=== PATIENT | female | born 1995 | race Hispanic/Latino ===

== ENCOUNTER 2021-02-02 01:30 | Emergency (ER) | payer OTHER, SELFPAY ==
--- NOTE | ~2021-02-02 | CT_ITS ---
EXAMINATION: CTA chest PE protocol DATE: 02/02/2021 03:12 INDICATION: Chest pain. Covid-positive. TECHNIQUE: Computed tomography angiography (CTA) of the chest was performed with 100 mL Omnipaque-350 intravenous contrast timed to evaluate the pulmonary arteries. Coronal maximum intensity projection 3D-reconstructions were created by the technologist. Automated exposure control and iterative reconst ruction technique were employed. Exam dose: 143.53 mGy-cm total exam DLP. COMPARISON: None. FINDINGS: There is diagnostic contrast enhancement of the pulmonary arteries. There is some streak ar tifact from the contrast bolus in the superior vena cava. No definite pulmonary embolism is noted. Normal heart size. No pericardial or pleural effusion. No thoracic aortic aneurysm or dissection. No hilar or mediastinal mass lesion or lymphadenopathy. No pulmonary infiltrate or consolidation, pleural effusion or pulmonary vascular congestion or pneumo thorax. Included skeletal structures are unremarkable. IMPRESSION: No apparent pulmonary embolism Reviewed, dictated and finalized at [facility]. Reviewed, dictated and finalized at location [facility].
[2021-02-02 01:36] VITALS: BP 106/74; PULSE 59; RESP 14; TEMP 36.3; O2SAT 100
--- NOTE | 2021-02-02 01:48 | ECG_ITS ---
Measurements Intervals [place] Rate: 59 P: 71 GA: 185 QRS: 77 QRSD: 94 T: 34 QT: 412 QTc: 411 Interpretive Statements SINUS BRADYCARDIA POSSIBLE LEFT ATRIAL ENLARGEMENT INCOMPLETE RIGHT BUNDLE BRANCH BLOCK BORDERLINE ECG Electronically Signed On 02-02-2021 7:12:27 CDT by Elvin Roberts D.O.
[2021-02-02 02:01] LABS: Basophils Percent Auto 0.3 % (0.2-1.2); Eosinophils Absolute Auto 0.1 K/mm3 (0-0.3); Eosinophils Percent Auto 1.6 % (0-4.4); Hematocrit 42.7 % (37.0-47.0); Hemoglobin 13.4 g/dL (12.0-15.0); Immature Granulocyte Absolute 0.01 K/mm3 (0.00-0.031); Immature Granulocyte Percent A 0.2 % (0-0.5); Lymphocytes Absolute Auto 3.55 K/mm3 (0.9-3.2); Lymphocytes Percent Auto 55.1 % (18.3-44.2); Mean Corpuscular HGB Conc 31.4 g/dl (32-36); Mean Corpuscular Hemoglobin 26.6 pg (26-34); Mean Corpuscular Volume 84.7 fl (80-100); Mean Platelet Volume 9.1 fl (7.4-10.4); Monocytes Absolute Auto 0.5 K/mm3 (0.1-0.6); Monocytes Percent Auto 7.9 % (2.6-8.5); Neutrophils Absolute Auto 2.3 K/mm3 (1.3-6.7); Neutrophils Percent Auto 34.9 % (45.5-73.1); Platelet Count Result 249 k/mm3 (150-375); Red Blood Count 5.04 M/mm3 (4.2-5.4); White Blood Count 6.4 K/mm3 (4.5-10.0)
[2021-02-02] MEDS: ALBUTEROL SULFATE (*SP) INHALER 2 PUFF INHALATION (02:01)
--- NOTE | 2021-02-02 02:04 | ED.GENADULT ---
HPI - General Adult General Chief complaint: Chest Pain Stated complaint: Chest pain, COVID + Time Seen by Provider: 02/02/21 01:37 History of Present Illness HPI narrative: Patient is a 25-year-old female presents to the emergency department with chief complaint of chest pain. The patient reports that she was diagnosed with COVID-19 after she went to a wedding where approximately 30 people tested positive for COVID-19 after exposure. Patient reports she has had both doses of with the mRNA vaccines for COVID-19. Patient reports she is had body aches and chills for the last several days reports that she just started coughing this evening. The patient states that she had a pain in the left side of her chest that radiates up into her neck reports that its not improved by anything reports its a aching-like pain. Related Data Home Medications Medication Instructions Recorded Confirmed No Home Medications 12/13/19 12/13/19 Allergies Allergy/AdvReac Type Severity Reaction Status Date / Time No Known Allergies Allergy Verified 01/10/21 10:15 Review of Systems Review of Systems: A 10 system review of systems was completed on the patient and is negative except for what is stated in the HPI. Nursing and ancillary documentation was reviewed. [facility] Past Medical History Medical History Healthy adult Family History Family History Mother Hypertension Diabetes mellitus Social History Social History Smoking status: Never smoker Alcohol intake: current Drinks per week: 0 Alcohol use details: rare Substance use: never Exam Narrative: GENERAL: Well-appearing, well-nourished, and in no acute distress. HEAD: Normocephalic, atraumatic. EYES: PERRLA and EOMI. ENT: Nares clear, no rhinorrhea or epistaxis. Mucous membranes moist. NECK: Supple. CHEST: Clear to auscultation. No respiratory distress. HEART: Regular rate and rhythm. No murmur heard. Normal peripheral pulses. ABDOMEN: Soft, nontender, nondistended, normal active bowel sounds. EXTREMITIES: Normal range of motion. No edema. SKIN: Warm, dry, no rash. NEURO: No focal deficits. Alert and oriented x3. PSYCH: Normal mood and affect. Course Course Emergency Course: EKG is sinus bradycardia rate of [address] elevation or ST depression Vital Signs Vital signs: Vital Signs Temperature 36.3 C L 02/02/21 01:36 Pulse Rate 59 L 02/02/21 01:36 Respiratory Rate 14 02/02/21 01:36 Blood Pressure 106/74 02/02/21 01:36 Pulse Oximetry 100 02/02/21 01:36 Temperature 36.3 C L 02/02/21 01:36 Pulse Rate 57 L 02/02/21 04:40 Respiratory Rate 14 02/02/21 04:40 Blood Pressure 101/71 02/02/21 04:40 Pulse Oximetry 100 02/02/21 04:40 Medical Decision Making Vital Signs Vital Signs: Vital Signs Temperature 36.3 C L 02/02/21 01:36 Pulse Rate 59 L 02/02/21 01:36 Respiratory Rate 14 02/02/21 01:36 Blood Pressure 106/74 02/02/21 01:36 Pulse Oximetry 100 02/02/21 01:36 Temperature 36.3 C L 02/02/21 01:36 Pulse Rate 57 L 02/02/21 04:40 Respiratory Rate 14 02/02/21 04:40 Blood Pressure 101/71 02/02/21 04:40 Pulse Oximetry 100 02/02/21 04:40 Lab Data Result diagrams: 02/02/21 01:54 02/02/21 01:53 Labs: Lab Results 02/02/21 02/02/21 02/02/21 Range/Units 01:53 01:53 01:54 WBC 6.4 (4.5-10.0) K/mm3 RBC 5.04 (4.2-5.4) M/mm3 Hgb 13.4 (12.0-15.0) g/dL Hct 42.7 (37.0-47.0) % MCV 84.7 (80-100) fl MCH 26.6 (26-34) pg MCHC 31.4 L (32-36) g/dl RDW 14.0 (11.5-14.5) % Plt Count 249 (150-375) k/mm3 MPV 9.1 (7.4-10.4) fl Immature Gran % (Auto) 0.2 (0-0.5) % Neut % (Auto) 34.9 L (45.5-73.1) % Lymph % (Auto) 55.1 H (18.3-44.2) %
[2021-02-02 02:11] LABS: Alanine Aminotransferase 17 U/L (4-35); Alkaline Phosphatase 50 U/L (38-126); Anion Gap 10 mmol/L (8-16); Aspartate Amino Transferase 31 U/L (14-36); Bilirubin,Total 0.5 mg/dL (0.2-1.3); Blood Urea Nitrogen 21 mg/dL (7-17); Calcium 9.8 mg/dL (8.4-10.2); Carbon Dioxide 28 mmol/L (22-30); Chloride 103 mmol/L (98-107); Estimated CRCL calculation 79 ml/min; Estimated Glomerular Filt Rate > 60; Glucose 98 mg/dL (65-110); Potassium 4.2 mmol/L (3.4-5.0); Sodium 141 mmol/L (137-145)
[2021-02-02 02:11] LABS: Lactic Acid Reflex 0.9 mmol/L (0.7-2.1)
[2021-02-02 02:22] LABS: INR 0.9; Prothrombin Time 12.5 Seconds (11.1-14.7); Troponin I < 0.012 ng/mL (0.000-0.034)
[2021-02-02 02:23] LABS: Partial Thromboplastin Time 27.2 SECONDS (22.3-36.8)
[2021-02-02 04:40] VITALS: BP 101/71; PULSE 57; RESP 14; O2SAT 100
[2021-02-02 05:44] VITALS: BP 102/73; PULSE 68; RESP 12; O2SAT 100
[2021-02-02 05:55] LABS: Troponin I < 0.012 ng/mL (0.000-0.034)
== END 2021-02-02 05:46 | disposition home or self-care (01) ==
PROVIDERS: Emergency Provider Emergency Medicine
DX: U07.1 COVID-19 (principal); R07.9 Chest pain, unspecified
CPT/HCPCS: 36415; 71275; 80053; 81025; 83605; 84484; 85025; 85610; 85730; 93005; 96365; 96366; 99284; A9270; J0131; Q9967

== ENCOUNTER → 2021-12-19 14:01 | Outpatient (CLI) | payer OTHER, SELFPAY ==
--- NOTE | ~2021-12-19 | US_ITS ---
EXAMINATION: US OB <=14 wk fetus w TV DATE: 12/19/2021 14:53 INDICATION: Assess dating and viability of first trimester TECHNIQUE: Real-time pelvic ultrasound utilizing both a transvaginal and transabdominal probe was pe rformed. The interpreting radiologist was not present for the study. COMPARISON: None. FINDINGS: The uterus measures 11.7 x 8.3 x 8.0 cm. There is an intrauterine gestational sac. A yolk sac and fe lucho pole are identified. The crown rump length measures 2.8 cm, which correlates with an estimated ge stational age of 9 weeks and 4 days. heart motion is identified measuring 161 beats per minute (bpm) by M-mode Doppler. The right ovary measures 2.8 x 1.5 x 3.4 cm. The left ovary measures 3.6 x 1.9 x 2.9 cm. There is no free fluid in the pelvis. IMPRESSION: 1. Single living fetus with heart rate of 161 bpm. 2. Gestational age by ultrasound of 9 weeks 4 day(s) +/- 6 day(s) with ultrasound estimated date of delivery ([facility]) of 07/20/2022. Reviewed, dictated and finalized at location [facility]. IMPRESSION: 1. Single living fetus with heart rate of 161 bpm. 2. Gestational age by ultrasound of 9 weeks 4 day(s) +/- 6 day(s) with ultraso und estimated date of delivery ([facility]) of 07/20/2022.
== END ==
PROVIDERS: PCP Student in an Organized Health Care Education/Training Program; Visit Provider Student in an Organized Health Care Education/Training Program
DX: O36.80X0 Pregnancy with inconclusive fetal viability, not applicable or unspecified (principal); Z3A.09 9 weeks gestation of pregnancy
CPT/HCPCS: 76801; 76817

== ENCOUNTER 2022-07-09 14:57 | Outpatient (CLI) | payer OTHER, SELFPAY ==
[2022-07-09] VITALS (21 sets, daily range): BP systolic 103–115; BP diastolic 62–76; PULSE 60–92; O2SAT 96–100
--- NOTE | ~2022-07-09 | US_ITS ---
EXAMINATION: US OB limited DATE: 07/09/2022 17:15 INDICATION: Evaluate JUANY. TECHNIQUE: Real-time ultrasound of the pelvis was performed. COMPARISON: None. FINDINGS: There is a single living fetus in vertex presentation, longitudinal lie. The placenta is fundal and posterior. heart rate is 129 beats per minute (bpm). The amniotic fluid index is 21.1 cm (5th t o 95th percentile is 7.3 to 23.9 cm). IMPRESSION: 1. Single living fetus in vertex presentation. 2. Normal posterior/fundal placenta. 3. Normal JUANY of 21.1 cm. Reviewed, dictated and finalized at location [facility].
--- NOTE | 2022-07-09 19:07 | PC.NURSE ---
Addendum entered by Montserrat Jeong RN 07/09/22 19:09: 1855 Original Note: Dr. Leon notified about JUANY and negative ROM plus, also informed of variable decel followed by reactive tracing. Orders to D/C
== END 2022-07-09 18:55 | disposition home or self-care (01) ==
LOC: ANHOBOP 16:00 → ANHOBPP 16:00
PROVIDERS: Visit Provider Obstetrics & Gynecology
DX: O42.90 Premature rupture of membranes, unspecified as to length of time between rupture and onset of labor, unspecified weeks of gestation (principal); Z3A.00 Weeks of gestation of pregnancy not specified
CPT/HCPCS: 76815; 84112; 99199

== ENCOUNTER 2022-07-12 18:41 | Outpatient (CLI) | payer OTHER, SELFPAY ==
[2022-07-12 20:22] VITALS: BP 119/68; PULSE 69
== END 2022-07-12 19:35 | disposition home or self-care (01) ==
LOC: ANHOBOP 20:13
PROVIDERS: Visit Provider Obstetrics & Gynecology
DX: Z34.93 Encounter for supervision of normal pregnancy, unspecified, third trimester (principal); Z3A.00 Weeks of gestation of pregnancy not specified
CPT/HCPCS: 59025; 84112

== ENCOUNTER 2022-07-17 16:29 | Inpatient (IN) | payer OTHER, SELFPAY ==
[2022-07-17] VITALS (81 sets, daily range): BP systolic 94–144; BP diastolic 60–110; PULSE 60–93; TEMP 36.5–37.1; O2SAT 96–100; BMI 27.2
--- NOTE | 2022-07-17 17:00 | LDADM ---
This patient, Jaja Stack, was admitted to Labor/Delivery/Recovery 106 on 07/17/22 at 16:29. Plans for labor, pain management and were discussed with patient. Patient/family oriented to hospital policies and general routines including ID bracelet, bed and alarms, visiting hours, pain management, procedures, bathroom and other care routines, personal items, smoking policy, room service/diet and guest tray routines, security routines, and visiting hours. Patient/Family are encouraged to report perceived risks to care and to ask questions if they do not understand what they are told or what they should do. See OBIX for further documentation.
[2022-07-17] MEDS: AMPICILLIN 2 GM/NS 100 ML 2 GM/100 ML BAG IVPB (17:27)
[2022-07-17] MEDS: LACTATED RINGERS 1,000 ML 125 ML IV CONT (17:27)
[2022-07-17 17:32] LABS: Basophils Percent Auto 0.3 % (0.2-1.2); Eosinophils Percent Auto 0.5 % (0-4.4); Hemoglobin 12.8 g/dL (12.0-15.0); Immature Granulocyte Absolute 0.06 K/mm3 (0.00-0.031); Immature Granulocyte Percent A 0.8 % (0-0.5); Lymphocytes Absolute Auto 2.03 K/mm3 (0.9-3.2); Lymphocytes Percent Auto 27.5 % (18.3-44.2); Mean Corpuscular Hemoglobin 27.5 pg (26-34); Mean Corpuscular Volume 85.8 fl (80-100); Mean Platelet Volume 9.8 fl (7.4-10.4); Monocytes Absolute Auto 0.9 K/mm3 (0.1-0.6); Monocytes Percent Auto 11.6 % (2.6-8.5); Neutrophils Absolute Auto 4.4 K/mm3 (1.3-6.7); Neutrophils Percent Auto 59.3 % (45.5-73.1); Platelet Count Result 230 k/mm3 (150-375); Red Blood Count 4.66 M/mm3 (4.2-5.4); Red Cell Distribution Width 15.5 % (11.5-14.5); White Blood Count 7.4 K/mm3 (4.5-10.0)
[2022-07-17] MEDS: OXYTOCIN 30 UNITS/NS 500 ML 30 UNITS/500 ML BAG IV CONT (17:33)
--- NOTE | 2022-07-17 19:24 | WPDANESEPP ---
Anes - Eval Pre Procedure Procedure: Labor epidural Date/Time: 07/17/22 19:24 Pre Op Diagnosis: iol Patient Data Age: 26 Gender: F Height: 1.63 m Weight: 72 kg Last Vital Signs Temp 37.1 C 07/17/22 17:29 Pulse 78 07/17/22 19:15 BP 109/65 07/17/22 19:15 Pulse Ox 99 07/17/22 19:23 O2 Del Method Room Air 07/17/22 16:55 Allergies Allergy/AdvReac Type Severity Reaction Status Date / Time No Known Allergies Allergy Verified 07/17/22 12:49 Home Medications Medication Instructions Recorded Confirmed Type prenat.vits,yris,qxt-ojks-wfcht 1 tablet PO DAILY 12/11/21 07/17/22 History ferrous sulfate 325 mg (65 mg 325 mg PO BID #60 tabs 04/29/22 07/17/22 Rx iron) tablet ondansetron 4 mg disintegrating 4 mg PO Q6H PRN nausea and 07/04/22 07/17/22 Rx tablet vomiting #30 tabs Laboratory Tests 07/17/22 07/17/22 07/17/22 16:52 16:52 16:52 WBC 7.4 K/mm3 K/mm3 (4.5-10.0) RBC 4.66 M/mm3 M/mm3 (4.2-5.4) Hgb 12.8 g/dL g/dL (12.0-15.0) Hct 40.0 % % (37.0-47.0) MCV 85.8 fl fl (80-100) MCH 27.5 pg pg (26-34) MCHC 32.0 g/dl g/dl (32-36) RDW 15.5 % H % (11.5-14.5) Plt Count 230 k/mm3 k/mm3 (150-375) MPV 9.8 fl fl (7.4-10.4) Immature Gran % (Auto) 0.8 % H % (0-0.5) Neut % (Auto) 59.3 % % (45.5-73.1) Lymph % (Auto) 27.5 % % (18.3-44.2) Barron % (Auto) 11.6 % H % (2.6-8.5) Eos % (Auto) 0.5 % % (0-4.4) Baso % (Auto) 0.3 % % (0.2-1.2) Lymph # (Auto) 2.03 K/mm3 K/mm3 (0.9-3.2) Barron # (Auto) 0.9 K/mm3 H K/mm3 (0.1-0.6) Eos # (Auto) 0.0 K/mm3 K/mm3 (0-0.3) Baso # (Auto) 0.0 K/mm3 K/mm3 (0.0-0.1) Abs Immat Gran (auto) 0.06 K/mm3 H K/mm3 (0.00-0.031) Absolute Neuts (auto) 4.4 K/mm3 K/mm3 (1.3-6.7) Absolute Nucleated RBC 0.0 K/mm3 K/mm3 (0.0-0.012) Nucleated RBC % 0.0 % % (0.0-0.2) RPR Pending Blood Type A Positive Antibody Screen Negative Patient hx anesthesia problems: none Family hx anesthesia problems: none Results Review: All pre-operative results and documents have been reviewed as part of the pre-operative evaluation. [facility] Past Medical History Medical History Healthy adult Family History Family History Mother Hypertension Diabetes mellitus Social History Social History Smoking status: Never smoker Alcohol intake: current Drinks per week: 0 Alcohol use details: rare Substance use: never Lack of Transportation: No Lack of Food: Never True Current Housing: I Have Housing Concerned About Future Housing: No Difficulty Paying Gas/Electric Bills: No Difficulty Paying for Meds: No Currently Unemployed: No Education: High School Diploma/GED Difficulty w/ Childcare or Family Care: No Living arrangements: with family Occupation/Education: occupation Gender identity (if verbalized by the patient): Female Sexual Orientation (if Verbalized by the Patient): Straight or Heterosexual Spiritual care concerns: No Exam Day of Procedure 07/17/22 19:24 Patient weight: overweight Heart: regular rate and rhythm Lungs: normal air movement Airway: Mallampati scale Neurological: alert and oriented
[2022-07-17] MEDS: AMPICILLIN 1 GM/NS 50 ML 1 GM/50 ML BAG IVPB (21:28)
[2022-07-18] VITALS (352 sets, daily range): BP systolic 81–156; BP diastolic 47–88; PULSE 37–202; TEMP 36.6–37.9; O2SAT 87–100
[2022-07-18] MEDS: AMPICILLIN 1 GM/NS 50 ML 1 GM/50 ML BAG IVPB ×5 (01:20→18:53)
[2022-07-18] MEDS: LACTATED RINGERS 1,000 ML 125 ML IV CONT ×4 (01:20→20:10)
[2022-07-18 12:09] LABS: Rapid Plasma Reagin Non-Reactive (NonReactive)
[2022-07-18] MEDS: ONDANSETRON INJ 4 MG/2 ML VIAL IV PUSH (13:55)
--- NOTE | 2022-07-18 14:37 | PM.IMHP ---
H&P: HPI History of Present Illness Date/Time: 07/17/22 1700 Chief Complaint: Nonreassuring tracing Narrative: patient is a 26-year-old at 39 weeks and 3 days by last menstrual period of 10/14/2021 with an EDC of 07/21/2022 consistent with a 9 week ultrasound.she presented for her routine OB visit at on 07/17 and the baseline heart rate was noted to be lower than prior she was sent for testing on Labor and delivery. Her tracing was significant for several mild decelerations with late component. She did have a prior a prior episode where she had isolated variable deceleration with prior testing. she was informed that these findings are concerning and the recommendation is for delivery. Discussed risk of not proceeding with delivery and questions were answered and she agreed to induction of labor. labs reviewed GBS positive. Review of Systems Review of Systems: All systems reviewed & are unremarkable except as noted in HPI and below Constitutional: Constitutional: Reports no additional constitutional complaints and Denies headache(s) Eyes: Eyes: Denies spots in vision ENT: Reports system reviewed and no additional complaints, except as documented and Denies headache(s) Cardiovascular: Cardiovascular: Denies chest pain and Denies dyspnea Respiratory: Respiratory: Denies dyspnea Gastrointestinal: Gastrointestinal: Reports no additional gastrointestinal complaints Genitourinary: Genitourinary: Reports amenorrhea Musculoskeletal: Musculoskeletal: Reports no additional musculoskeletal complaints Integumentary/Breasts: Skin/Breast: Denies breast mass and Denies rash Neurologic: Denies headache(s) Psychiatric: Psychiatric: Reports no additional psychiatric complaints [facility] Past Medical History Medical History Healthy adult Family History Family History Mother Hypertension Diabetes mellitus Social History Social History Smoking status: Never smoker Alcohol intake: current Drinks per week: 0 Alcohol use details: rare Substance use: never Lack of Transportation: No Lack of Food: Never True Current Housing: I Have Housing Concerned About Future Housing: No Difficulty Paying Gas/Electric Bills: No Difficulty Paying for Meds: No Currently Unemployed: No Education: High School Diploma/GED Difficulty w/ Childcare or Family Care: No Living arrangements: with family Occupation/Education: occupation Gender identity (if verbalized by the patient): Female Sexual Orientation (if Verbalized by the Patient): Straight or Heterosexual Spiritual care concerns: No Meds Home Medications and Allergies Home Medications Medication Instructions Recorded Confirmed Type prenat.vits,yris,qcs-kjas-gytmv 1 tablet PO DAILY 12/11/21 07/17/22 History ferrous sulfate 325 mg (65 mg 325 mg PO BID #60 tabs 04/29/22 07/17/22 Rx iron) tablet ondansetron 4 mg disintegrating 4 mg PO Q6H PRN nausea and 07/04/22 07/17/22 Rx tablet vomiting #30 tabs Allergies Allergy/AdvReac Type Severity Reaction Status Date / Time No Known Allergies Allergy Verified 07/17/22 12:49 Vital Signs Vital Signs - 24 hr 07/17/22 16:48 07/17/22 16:53 07/17/22 16:58 Temperature Pulse Rate Blood Pressure Pulse Oximetry 100 100 100 Oxygen Delivery 07/17/22 17:03 07/17/22 17:08 07/17/22 17:13 Temperature Pulse Rate Blood Pressure Pulse Oximetry 100 100 100 Oxygen Delivery 07/17/22 17:18 07/17/22 17:23 07/17/22 17:24 Temperature Pulse Rate Blood Pressure Pulse Oximetry 100 100 99 Oxygen Delivery 07/17/22 17:28 07/17/22 17:33 07/17/22 17:36 Temperature Pulse Rate 75 Blood Pressure 112/64 Pulse Oximetry 98 100 Oxygen Delivery 07/17/22 17:29 07/17/22
--- NOTE | 2022-07-18 14:45 | PM.OBPNLAB ---
Pain Control Date/time seen: 07/18/22 14:45 Comments: Category 1 tracing contractions irregular cervix /-2 AROM clear. Continue Pitocin.
--- NOTE | 2022-07-18 20:50 | PM.OBPNLAB ---
Pain Control Date/time seen: 07/18/22 20:50 Comments: fht 145, cervix- complete +1, FHT cat 2, ctx irreg, she did receive tylenol for headache and low grade temp.
[2022-07-18] MEDS: OXYTOCIN 30 UNITS/NS 500 ML 30 UNITS/500 ML BAG 125 UNITS IV CONT (22:01)
--- NOTE | 2022-07-18 22:01 | PM.OBPRVD ---
OB - Delivery Note Procedure Delivery date: 07/18/22 Procedure: spontaneous vaginal delivery Events: Positive Group B Strep (GBS) Induction method: Per Pitocin Protocol Delivery augmentation: Rupture of Membranes Delivery monitor: External FHT and Internal Uterine Route of delivery: Episiotomy description: Left Mediolateral Laceration Description: Vaginal Delivery repair: vicryl (3.0 vicryl) Specimen: Yes Quantitative Blood Loss (ml): 300 Anesthesia type: Epidural Disposition: Floor Narrative: She was admitted for [facility] due to nonreassuring tracing. Pitocin administered. She had SROM. She progressed to 8 cm. Progress was protracted, IUPC placed. Pitocin adjusted. She was complete, OP position. She pushed. Second stage of labor significant for late deceleration which did improve with oxygen and her pushing on her left side. There was terminal aramis cardia in the sixties and a left ML episiotomy performed and she delivered a male infant in the OA position. There was a tight nuchal cord which was surgically reduced. Nose/mouth suctioned at perineum. The shoulders were delivered with gentle traction and the baby delivered. Terminal meconium noted. Infant handed to nursery staff. Pitocin started. Placenta delivered spontaneously and intact with trailing membranes. Uterine tone was good. The episiotomy and small vaginal laceration was repaired with 3.0 vicryl. Small superior right labia minora laceration. Hemostasis noted, did not require suture. Baby Date of : 07/18/22 Time of : 21:33 Weeks of gestation at delivery: 39 gender: Male Weight (pounds): 7 Weight (ounces): 7 presentation: vertex position: Right Occiput Anterior Placenta delivery description: Spontaneous Cord Vessel Description: 3 Vessels score one minute: 7 score five minutes: 8 AMG Delivery Billing Delivery Delivery: Delivery Charge
--- NOTE | 2022-07-18 22:11 | PM.OBDSVD ---
DS: Admitting Diagnosis Discharge Date 07/20/22 Admitting Diagnosis Nonreassuring tracing DS: Discharge Diagnosis Discharge Diagnosis (1) Vaginal delivery: Code(s): O80 - Encounter for full-term uncomplicated delivery Status: Acute (2) Non-reassuring cardiotocographic tracing: Code(s): O36.8390 - Maternal care for abnormalities of the heart rate or rhythm, unspecified trimester, not applicable or unspecified Status: Acute OB - DS: Summary Hospital Course Hospital Course: She was admitted for non reassuring tracing. MIL with Pitocin. She had assisted rupture of membranes and progressed to complete. She had an uncomplicated vaginal delivery. She did well post . She had adequate pain control. She was ambulating well. Baby was doing well. OB Procedures : Ultrasound OB Procedures Intrapartum: Spontaneous Vag Delivery OB Procedures: : None Peripartum Data Delivery Method: Natural Vaginal Episiotomy description: Left Mediolateral complications: none Status at Discharge Functional status at discharge: independent ambulation Time Spent with Patient Time attestation: Total time spent providing and/or coordinating discharge services: Exam Const: General: cooperative Orientation/consciousness: oriented to person, oriented to place and oriented to time HENMT: Face/Nose/Sinus: Normal external nose present Eyes: General: appearance normal, both eyes and all related structures Resp: Effort & Inspection: normal respiratory effort GI: Inspection: normal to inspection Skin: General skin exam: normal color Neuro: General: oriented to person, oriented to place and oriented to time Extrem: General: normal to inspection and no calf tenderness Psych: Appearance: grossly normal Mental Status: mental status grossly normal DS: Data Data Completed and Pending Pending studies at discharge: Pending at discharge 07/18/22 21:38 Surgical [PTH] Routine Labs on day of discharge: Labs from last 24 hours 07/17/22 16:52 RPR Non-reactive Discharge Plan Discharge Attending physician on discharge: Berry Leon Discharging Clinician: Berry Leon Anticipated Discharge Date/Time: 07/20/22 11:38 Patient Disposition: Home, Self-Care Activity: may shower and no straining Diet: regular Patient Instructions: Antibiotic Form, Vaginal Delivery (DC) Stand Alone Forms: General Discharge Information Follow-up/Referrals: Edward,Berry L., MD [Physician] - 2 Weeks (call for appointment) Discharge Medications: Continued prenat.vits,yris,vvb-[id number]-[id number] Tablet 1 tablet PO DAILY ferrous sulfate 325 mg (65 mg iron) tablet 325 mg PO BID Qty: 60 2RF Discontinued ondansetron 4 mg tablet,disintegrating 4 mg PO Q6H PRN (Reason: nausea and vomiting) Qty: 30 1RF Date of admission: 07/17/22 16:29 Primary Care Provider: PHYSICIAN,SAFETY BELT INSTALLER Admitting Provider: Berry Leon Attending physician on admission: Berry Leon Condition: Stable
[2022-07-19] VITALS: BP 129/73; PULSE 63
[2022-07-19 00:17] VITALS: BP 128/75; PULSE 63; RESP 18; TEMP 37.3; O2SAT 99
--- NOTE | 2022-07-19 00:17 | OBPPTRN ---
Patient transferred to post room #281 via ( wheelchair ). Support person present. Oriented to unit, room, information board, rooming in, admission packet and security measures. Patient verbalizes understanding.
[2022-07-19 04:30] VITALS: BP 98/63; PULSE 76; RESP 16; TEMP 37; O2SAT 99
[2022-07-19 05:05] LABS: Hematocrit 33.6 % (37.0-47.0); Hemoglobin 11.2 g/dL (12.0-15.0)
[2022-07-19 08:00] VITALS: BP 98/62; PULSE 85; RESP 16; TEMP 36.9; O2SAT 99
[2022-07-19] MEDS: ACETAMINOPHEN 325 MG TABLET 650 MG PO ×2 (08:18→15:25)
[2022-07-19] MEDS: MULTIVIT/MIN/PREN/FOL AC/IRON TABLET 1 TAB PO (08:19)
[2022-07-19] MEDS: DOCUSATE SODIUM 100 MG CAPSULE PO ×2 (08:19→15:25)
--- NOTE | 2022-07-19 11:43 | WPDANLDPN2 ---
Anes-Prog Note L&D Date/Time: 07/19/22 11:43 Comfortable throughout: labor and delivery Neuraxial method: epidural Epidural/Spinal procedure site: clean & non-tender Neuro status: Neuro function grossly intact. Cardiovascular status: normal Respiratory status: normal Airway patency: baseline Mental status: baseline Post-Op hydration status: normal Vital Signs: Last Vital Signs Temp 98.4 F 07/19/22 08:00 Pulse 85 07/19/22 08:00 Resp 16 07/19/22 08:00 BP 98/62 L 07/19/22 08:00 Pulse Ox 99 07/19/22 08:00 O2 Del Method Room Air 07/17/22 16:55 Pain score (VAS): 0 I/O: Intake & Output 07/18/22 07/19/22 07/19/22 23:59 07:59 15:59 Intake Total 1650 1000 Output Total 120 400 Balance 1530 1000 -400 Post-procedural complaints: none Patient feedback: Patient satisfied with anesthetic care.
--- NOTE | 2022-07-19 12:05 | PM.OBPNVD ---
OB - PN: Subj Subjective Date/time seen: 07/19/22 12:05 Patient comments: pain well controlled, tolerating diet and other (Decreasing lochia.) baby status: doing well and nursing well OB - PN: Obj Data Labs 07/19/22 04:56 Labs: Laboratory Results - last 24 hr 07/17/22 07/19/22 16:52 04:56 Hgb 11.2 L Hct 33.6 L RPR Non-reactive OB - PN A/P Assessment and Plan (1) Vaginal delivery: Code(s): O80 - Encounter for full-term uncomplicated delivery Status: Acute Assessment and Plan: PPD 1. S/p . Doing well. Continue routine care. Plan day: 1 Plan: routine care Comments: Patient doing well. Time Spent With Patient Time: Total time spent is greater than 50% in coordination of care (as documented) at patient's floor/unit and/or counseling patient: Exam Psych: Affect: normal affect Other: Abd: fundus firm below umbilicus, nontender Perineum: healing Ext: nontender
[2022-07-19 17:58] VITALS: BP 97/53; BP 98/57; PULSE 71; PULSE 74; RESP 16; TEMP 36.7; TEMP 37.2; O2SAT 98; O2SAT 99
[2022-07-19 20:00] VITALS: BP 112/73; PULSE 70; RESP 16; TEMP 36.4; O2SAT 100
[2022-07-20 08:00] VITALS: BP 118/81; PULSE 51; RESP 16; TEMP 36.7; O2SAT 98
[2022-07-20] MEDS: MULTIVIT/MIN/PREN/FOL AC/IRON TABLET 1 TAB PO (08:58)
[2022-07-20] MEDS: DOCUSATE SODIUM 100 MG CAPSULE PO (08:58)
--- NOTE | 2022-07-20 11:33 | PM.OBPNVD ---
OB - PN: Subj Subjective Date/time seen: 07/20/22 11:33 Patient comments: pain well controlled, tolerating diet and other (Decreasing lochia.) baby status: doing well and nursing well OB - PN: Obj Data Labs 07/19/22 04:56 OB - PN A/P Assessment and Plan (1) Vaginal delivery: Code(s): O80 - Encounter for full-term uncomplicated delivery Status: Acute Assessment and Plan: PPD 2. Doing well. Discharge precautions discussed. Plan day: 2 Plan: discharge home and other Comments: Patient doing well. Follow up 4-6 weeks. Discharge instructions provided. Time Spent With Patient Time: Total time spent is greater than 50% in coordination of care (as documented) at patient's floor/unit and/or counseling patient: Time with patient: less than 15 minutes Exam Psych: Affect: normal affect Other: Abd: fundus firm below umbilicus, nontender Ext: nontender
[2022-07-21 09:47] VITALS: BP 106/65; PULSE 66; RESP 16; TEMP 36.7; O2SAT 98
== END 2022-07-20 13:20 | disposition home or self-care (01) | DRG 807 ==
LOC: ANHLDR 07-18 11:36 → ANHOB2 07-19 00:19
PROVIDERS: Admitting Provider Obstetrics & Gynecology; Visit Provider Obstetrics & Gynecology
DX: O36.8330 Maternal care for abnormalities of the fetal heart rate or rhythm, third trimester, not applicable or unspecified (principal); Z37.0 Single live birth; O99.824 Streptococcus B carrier state complicating childbirth; Z3A.39 39 weeks gestation of pregnancy; O69.1XX0 Labor and delivery complicated by cord around neck, with compression, not applicable or unspecified
CPT/HCPCS: 36415; 85014; 85018; 85025; 86592; 86850; 86900; 86901; 88307; A9270; J0131; J0290; J2405; J2590; J2795; J7120

== ENCOUNTER 2024-06-19 01:33 | Emergency (ER) | payer OTHER, SELFPAY ==
--- NOTE | ~2024-06-19 | XR_ITS ---
EXAMINATION: XR chest 2V DATE: 06/19/2024 02:17 INDICATION: Chest pain. TECHNIQUE: Frontal and lateral views of the chest were obtained. COMPARISON: Chest CT 02/02/2021 FINDINGS: There is no pneumonia, pleural effusion, or pneumothorax. The heart size is normal. IMPRESSION: 1. No acute cardiopulmonary disease. Reviewed, dictated and finalized at location A. ST RESOURCES PROFESSOR
[2024-06-19 01:35] VITALS: BP 108/69; PULSE 61; RESP 17; TEMP 36.5; O2SAT 100
--- NOTE | 2024-06-19 01:35 | ECG_ITS ---
Test Date: 2024-06-19 01:45:25 Measurements Intervals [place] Rate: 66 P: 70 OK: 165 QRS: 78 QRSD: 115 T: 23 QT: 394 QTc: 416 Interpretive Statements SINUS RHYTHM INCOMPLETE RIGHT BUNDLE BRANCH BLOCK BASELINE ARTIFACT- I, II, AVR, AVL, AVF, V1-V6 BORDERLINE ECG No previous ECG available for comparison Electronically Signed On 06-19-2024 07:07:10 [facility] [facility] by Elvin Roberts D.O.
--- OUTSIDE RECORDS SUMMARY | 2024-06-19 01:37 | XMS_ITS | Clinical Summary ---
Author Organization [facility] Address [address] [place] [address] Care Team Providers Care Denture Processor Name Role Phone Kristy Briecno NP Primary Care Provider [phone] Allergies No known active allergies Medications No known medications Active Problems No known active problems Encounters Date Type Department Care Team Description 06/17/2024 Orders Only [address] [address] Kristy Briceno NP 06/16/2024 4:15 PM FAMILY LAW ATTORNEY - 06/16/2024 11:59 PM FAMILY LAW ATTORNEY Hospital Encounter [facility] [address] [place] [address] Kristy Briceno NP Arrived Discharge Disposition: Home or Self Care (Routine Discharge) 06/16/2024 4:05 PM FAMILY LAW ATTORNEY - 06/16/2024 4:14 PM FAMILY LAW ATTORNEY Hospital Encounter [facility] [address] [place] [address] Kristy Briceno NP Arrived Discharge Disposition: Home or Self Care (Routine Discharge) 06/16/2024 3:00 PM FAMILY LAW ATTORNEY Office Visit [address] [address] Kristy Briceno NP Menstrual Problem (Pt reports on 05/01/24 she took plan B, next period was normal. She had flu a week after her period ended. She started bleeding again, accompained with strong cramps that have occurred even while she was not on her period. //She reports she is now late by 6 days had 2 negative test. Reports to a new cp as well that occurs at night before bed. Admits it may be anxiety) 06/16/2024 Travel from Last 3 Months Family History Medical History Relation Comments Diabetes type II Mother Hypertension Mother Relation Status Comments Mother Social History Tobacco Use Types Packs/Day Years Used Date Smoking Tobacco: Never Smokeless Tobacco: Never Tobacco Cessation:Counseling Given: No Alcohol Use Standard Drinks/Week Comments Yes 0 (1 standard drink = 0.6 oz pur e alcohol) PHQ-2 Answer Date Recorded Patient Health Questionnaire-2 Score 0 02/10/2023 Comments No Sex and Gender Information Value Date Recorded Sex Assigned at Female 06/16/2024 7:26 AM FAMILY LAW ATTORNEY Legal Sex Female 3:28 PM CDT Gender Identity Female 06/16/2024 7:26 AM FAMILY LAW ATTORNEY Sexual Orientation Straight 06/16/2024 7: 26 AM FAMILY LAW ATTORNEY Last Filed Vital Signs Vital Sign Reading Time Taken Comments Blood Pressure 122/70 06/16/2024 3:12 PM FAMILY LAW ATTORNEY Pulse 69 06/16/2024 3:12 PM FAMILY LAW ATTORNEY Temperature 36.7 C (98 F) 06/16/2024 3:12 PM FAMILY LAW ATTORNEY Respiratory Rate 16 06/16/2024 3:12 PM FAMILY LAW ATTORNEY Oxygen Saturation 97% 06/16/2024 3:12 PM FAMILY LAW ATTORNEY Inhaled Oxygen Concentration - - Weight 58.5 kg (129 lb) 06/16/2024 3:12 PM FAMILY LAW ATTORNEY Height 162.6 cm (5' 4 ) 02/10/2023 3:01 PM CDT Body Mass Index 22.14 02/10/2023 3:01 PM CDT Plan of Treatment Upcoming Encounters Date Type Department Care Team (Late st Contact Info) Description 06/27/2024 3:00 PM FAMILY LAW ATTORNEY Appointment [facility] [address] [place], [place] [id number] Kristy Briceno NP [address] [place] [address] Health Maintenance Due Date Last Done Comments Cervical Cancer Screening Pa p Smear (Age 30 to 64) Every 3 Years 1993 DTaP, Tdap and Td Vaccines ( 1 - Tdap) 2012 Hepatitis B Vaccines (1 of 3 - 19+ 3-dose series) 2012 Cervical Cancer Screening Pa p with HPV Testing (Age 30 to 64) Every 5 Years 09/03/2023 Cervical Cancer Screening wi th HPV 09/03/2023 COVID-19 Vaccine (3 - 2023-2 5 season) 2023 08/16/2020, 07/26/2020 Influenza Adult (#1) 2024 Annual Physical 02/11/2024 02/10/2023, 07/18/2021 PHQ-2 (Physician Kiana) 04/27/2024 02/10/2023 Hepatitis C Completed 02/16/2023, 07/19/2021 HPV Vaccines Aged Out No longer eligi ble based on patient's age to complete this topic Meningococcal B Vaccine Aged Out No l onger eligible based on patient's age to complete this topic Meningococcal Vaccine Aged Out No willy valeriano eligible based on patient's age to complete this topic Pneumococcal Vaccine: Pediatrics (0 to 5 Years) and At-Risk Patients (6 to 64 Years) Aged Out No longer eligible b ased on patient's age to complete this topic RSV Immunizations Under 20 Months Aged Out No longer eligible b ased on patient's age to complete this topic Procedures Procedure Name Priority Date/Time Associated Diagnosis Comments ECG 12-LEAD STAT 06/16/2024 4:24 PM FAMILY LAW ATTORNEY Chest pain, unspecified type HCG QUANT (SERUM)-CHORIONIC GONADOTROPIN STAT 06/16/2024 4:08 PM FAMILY LAW ATTORNEY Late menses TSH W/REFLEX STAT 06/16/2024 4:08 PM FAMILY LAW ATTORNEY Screening for thyroid disorder COMPREHENSIVE METABOLIC PANEL STAT 06/16/2024 4:08 PM FAMILY LAW ATTORNEY Chest pain, unspecified type Screening for endocrine, metabolic and immunity disorder CBC W/DIFF AUTOMATED STAT 06/16/2024 4:08 PM FAMILY LAW ATTORNEY Chest pain, unspecified type Screening for endocrine, metabolic and immunity disorder HEPATITIS C ANTIBODY W/RFX TO HCV RNA Routine 02/16/2023 1:56 PM CDT Need for hepatitis C screening test from Last 3 Months or Most Recently Relevant to Health Maintenance Results * ECG 12 lead (Hosp Performed) (06/16/2024 4:24 PM FAMILY LAW ATTORNEY) 06/16/2024 4:24 PM FAMILY LAW ATTORNEY Narrative [facility] ([facility]) RAD - 06/18/2024 12:42 PM FAMILY LAW ATTORNEY [facility] Test Date: 2024-06-16 Pat Name: MISAEL PEDRAZA Department: 85 Room: Gender: Female Electrical Line Worker: : 1995 Requested By: KRISTY BRICENO Order Number: [id number] Reading : Moreno Chavez Measurements Intervals [place] Rate: 59 P: 70 AL: 176 QRS: 92 QRSD: 125 T: 24 QT: 406 QTc: 405 Interpretive Statements SINUS BRADYCARDIA POSSIBLE LEFT ATRIAL ENLARGEMENT [-0.1mV P-WAVE IN V1/V2] BORDERLINE RIGHT AXIS DEVIATION [QRS AXIS > 90] POSSIBLE RIGHT VENTRICULAR CONDUCTION DELAY [RSR (QR) IN V1/V2] MODERATE ST DEPRESSION [0.05+ mV ST DEPRESSION] No previous ECG available for comparison LY LAW ATTORNEY Procedure Note Moreno Chavez MD - 06/18/2024 [facility] Test Date: 2024-06-16 Pat Name: MISAEL PEDRAZA Department: 85 Room: Gender: Female Electrical Line Worker: : 1995 Requested By: KRISTY BRICENO Order Number: [id number] Reading : Moreno Chavez Measurements Intervals [place] Rate: 59 P: 70 AL: 176 QRS: 92 QRSD: 125 T: 24 QT: 406 QTc: 405 Interpretive Statements SINUS BRADYCARDIA POSSIBLE LEFT ATRIAL ENLARGEMENT [-0.1mV P-WAVE IN V1/V2] BORDERLINE RIGHT AXIS DEVIATION [QRS AXIS > 90] POSSIBLE RIGHT VENTRICULAR CONDUCTION DELAY [RSR (QR) IN V1/V2] MODERATE ST DEPRESSION [0.05+ mV ST DEPRESSION] No previous ECG available for comparison LY LAW ATTORNEY Kristy Briceno COMPUTATIONAL THEORY SCIENTIST ECG ORDERABLES Final Res ult Performing Organization Address [facility]/ZIP Co de Phone Number [facility] ([facility]) RAD * TSH W/REFLEX (06/16/2024 4:08 PM FAMILY LAW ATTORNEY) TSH 1.256 0.358 - 3.74 uIU/ML 06/16/2024 4:46 PM FAMILY LAW ATTORNEY [facility] Comment: HIGH DOSES OF BIOTIN MAY INTERFERE WITH THIS TEST RESULT. CORRELATION TO CLINICAL HISTORY AND PRESENTATION RECOMMENDED. FREE T4 NOT INDICATED 06/16/2024 4:08 PM FAMILY LAW ATTORNEY Kristy Briceno COMPUTATIONAL THEORY SCIENTIST LABORATORY Final Res ult Performing Organization Address [facility]/ZIP Co de Phone Number [facility] [address] [place] [address], [place] [phone] * (ABNORMAL) COMPREHENSIVE METABOLIC PANEL (06/16/2024 4:08 PM FAMILY LAW ATTORNEY) GLUCOSE 108(H) 70 - 99 MG/DL 06/16/2024 4:46 PM [facility] BUN 17 7 - 18 MG/DL 06/16/2024 4:46 PM [facility] CREATININE S/P/B 0.76 0.55 - 1.02 MG/DL 06/16/2024 4:46 PM [facility] SODIUM S/P/B 141 136 - 145 MMOL/L 06/16/2024 4:46 PM [facility] POTASSIUM S/P/B 4.1 3.5 - 5.1 MMOL/L 06/16/2024 4:46 PM [facility] CHLORIDE S/P/B 104 100 - 108 MMOL/L 06/16/2024 4:46 PM [facility] CO2 29.1 21 - 32 MMOL/L 06/16/2024 4:46 PM [facility] CALCIUM S/P/B 9.3 8.5 - 10.1 MG/DL 06/16/2024 4:46 PM [facility] BILIRUBIN TOTAL S/P/B 0.5 0.2 - 1.2 MG/DL 06/16/2024 4:46 PM [facility] TOTAL PROTEIN S/P/B 7.5 6.4 - 8.2 G/DL 06/16/2024 4:46 PM [facility] ALBUMIN S/P/B 3.9 3.4 - 5.0 G/DL 06/16/2024 4:46 PM [facility] AST 15 15 - 37 U/L 06/16/2024 4:46 PM [facility] ALT 23 14 - 55 U/L 06/16/2024 4:46 PM [facility] ALKALINE PHOSPHATASE S/P/B 40(L) 50 - 136 U/L 06/16/2024 4:46 PM [facility] ANION GAP 7.9 5 - 15 MMOL/L 06/16/2024 4:46 PM [facility] BUN CREATININE RATIO 22.4 6 - 26 06/16/2024 4:46 PM [facility] A/G RATIO 1.1 1.0 - 2.0 RATIO 06/16/2024 4:46 PM [facility] GFR ESTIMATE >90 >90 ML/MIN/1.7 3 M2 06/16/2024 4:46 PM [facility] Comment: NOTE: eGFR is not calculated for patients <18 years of age. This is an estimated GFR calculation using the new CKD EPI creatinine equation without race and so does not require a correction factor for race. This estimated GFR should not be used for calculating drug doses. 06/16/2024 4:08 PM FAMILY LAW ATTORNEY Kristy Briceno COMPUTATIONAL THEORY SCIENTIST LABORATORY Final Res ult Performing Organization Address [facility] de Phone Number [facility] [address] [place] [address], [place] [phone] * HCG QUANT (SERUM)-CHORIONIC GONADOTROPIN (06/16/2024 4:08 PM FAMILY LAW ATTORNEY) HCG QUANTITATIVE <1 0 - 6 MIU/ML 06/16/2024 4:46 PM FAMILY LAW ATTORNEY [facility] Comment: WEEKS OF REFERENCE RANGES NON- FEMALE 0-6 0.2 - 1 5 - 50 1 - 2 50 - 500 2 - 3 100 - 5000 3 - 4 500 - 10,000 4 - 5 1000 - 50,000 5 - 6 10,000 - 100,000 6 - 8 15,000 - 200,000 2 - 3 MONTHS 10,000 - 100,000 06/16/2024 4:08 PM FAMILY LAW ATTORNEY Kristy Briceno NP LABORATORY Final Res ult Performing Organization Address [facility] de Phone Number [facility] [address] [place] [address], [place] [phone] * (ABNORMAL) CBC W/DIFF AUTOMATED (06/16/2024 4:08 PM FAMILY LAW ATTORNEY) WBC 5.37 4.4 - 11.0 x10'3/uL 06/16/2024 4:19 PM FAMILY LAW ATTORNEY [facility] RBC 4.45(L) 4.50 - 5.10 x10'6/uL 06/16/2024 4:19 PM FAMILY LAW ATTORNEY [facility] HGB 12.0(L) 12.3 - 15.3 G/DL 06/16/2024 4:19 PM [facility] HCT 37.9 35.9 - 44.6 % 06/16/2024 4:19 PM [facility] MCV 85.2 80.0 - 96.0 FL 06/16/2024 4:19 PM [facility] MCH 27.0 25.3 - 30.9 PG 06/16/2024 4:19 PM [facility] MCHC 31.7 31.0 - 34.1 G/DL 06/16/2024 4:19 PM [facility] RDW 13.9 12.4 - 15.1 % 06/16/2024 4:19 PM [facility] PLT 275 151 - 353 x10'3/uL 06/16/2024 4:19 PM [facility] MPV 9.2(L) 9.6 - 12.0 FL 06/16/2024 4:19 PM [facility] RBC MORPHOLOGY NORMAL 06/16/2024 4:19 PM [facility] PLT MORPH. NORMAL 06/16/2024 4:19 PM [facility] WBC MORPHOLOGY NORMAL 06/16/2024 4:19 PM [facility] LYMPHOCYTES % 45.4(H) 15.8 - 45.0 % 06/16/2024 4:19 PM [facility] NEUTROPHILS % 40.0(L) 42.1 - 71.9 % 06/16/2024 4:19 PM [facility] MONOCYTES % 12.7(H) 5.7 - 12.5 % 06/16/2024 4:19 PM [facility] EOSINOPHILS 1.5 0.0 - 5.6 % 06/16/2024 4:19 PM FAMILY LAW ATTORNEY [facility] BASOPHILS 0.2 0.0 - 1.3 % 06/16/2024 4:19 PM FAMILY LAW ATTORNEY [facility] ABS. NEUTROPHILS 2.15 1.40 - 6.00 x10'3/uL 06/16/2024 4:19 PM FAMILY LAW ATTORNEY [facility] IMMATURE GRANS % 0.2 0.0 - 0.5 % 06/16/2024 4:19 PM FAMILY LAW ATTORNEY [facility] ABS. LYMPHOCYTES 2.44 0.80 - 4.70 x10'3/uL 06/16/2024 4:19 PM FAMILY LAW ATTORNEY [facility] 06/16/2024 4:08 PM FAMILY LAW ATTORNEY Kristy Briceno NP LABORATORY Final Res ult Performing Organization Address [facility] Co de Phone Number [facility] [address] [place] [address], * HEPATITIS C ANTIBODY W/RFX TO HCV RNA (02/16/2023 1:56 PM CDT) Pathologist [facility] HEPATITIS C AB Non Reactive Non Reacti [facility] 1 INTERPRETATION Comment [facility] Comment: Not infected with HCV unless early or acute infection is suspected (which may be delayed in an immunocompromised individual), or other evidence exists to indicate HCV infection. 02/16/2023 1:56 PM CDT 02/16/2023 Narrative [facility] - 02/17/2023 2:07 PM CDT Performed at: [address] [place] [id number] Plastic Block Boiler Reliner: Satinder Oliva PhD, Phone: [phone] Kristyemmanuel Briceno NP LABORATORY Final Res ult [facility] [address] [place] [address] [facility] 1 from Last 3 Months or Most Recently Relevant to Health Maintenance Insurance [employer] Care Teams Denture Processor Relationship Specialty Start Date End Date Kristy Briceno NP [address] [place] [address] PCP - General NURSE PRACTITIONER 07/11/21
--- OUTSIDE RECORDS SUMMARY | 2024-06-19 01:37 | XMS_ITS | Clinical Summary ---
Author Organization [facility] Address [address] [place] [address] Phone Care Team Providers Care Sheriff'S Officer Name Role Phone Unavailable Primary Care Provider Unavailabl e Social History Tobacco Use Types Packs/Day Years Used Date Smoking Tobacco: Never Assessed Comments Unknown Sex and Gender Information Value Date Recorded Sex Assigned at Not on file Legal Sex Female 11:27 AM CDT Gender Identity Not on file Sexual Orientation Not on file Plan of Treatment Health Maintenance Due Date Last Done Comments DTAP/TDAP/TD VACCINES (1 - Tdap) 2012 HEPATITIS B VACCINES (1 of 3 - 19+ 3-dose series) 2012 CERVICAL CANCER SCREENING 09/03/2023 INFLUENZA VACCINE (#1) 2023 HPV VACCINES Aged Out No longer eligi ble based on patient's age to complete this topic Insurance [employer] [facility] [id number]
[2024-06-19 02:05] LABS: Basophils Percent Auto 0.2 % (0.2-1.2); Eosinophils Absolute Auto 0.1 K/mm3 (0-0.3); Eosinophils Percent Auto 2.2 % (0-4.4); Hematocrit 35.7 % (37.0-47.0); Hemoglobin 11.3 g/dL (12.0-15.0); Immature Granulocyte Absolute 0.01 K/mm3 (0.00-0.031); Immature Granulocyte Percent A 0.2 % (0-0.5); Lymphocytes Percent Auto 53.3 % (18.3-44.2); Mean Corpuscular HGB Conc 31.7 g/dl (32-36); Mean Corpuscular Hemoglobin 26.9 pg (26-34); Mean Platelet Volume 9.6 fl (7.4-10.4); Monocytes Absolute Auto 0.7 K/mm3 (0.1-0.6); Monocytes Percent Auto 12.3 % (2.6-8.5); Neutrophils Absolute Auto 1.9 K/mm3 (1.3-6.7); Neutrophils Percent Auto 31.8 % (45.5-73.1); Platelet Count Result 243 k/mm3 (150-375); Red Cell Distribution Width 13.8 % (11.5-14.5)
[2024-06-19 02:22] VITALS: PULSE 65
[2024-06-19 02:22] LABS: Alanine Aminotransferase 17 U/L (6-35); Albumin Level 4.2 g/dL (3.5-5.1); Alkaline Phosphatase 38 U/L (38-126); Anion Gap 10 mmol/L (4-12); Aspartate Amino Transferase 22 U/L (14-36); Bilirubin,Total 0.6 mg/dL (0.2-1.3); Blood Urea Nitrogen 16 mg/dL (7-17); Carbon Dioxide 25 mmol/L (22-30); Chloride 105 mmol/L (98-107); Estimated CRCL calculation 84 ml/min; Estimated Glomerular Filt Rate > 60; Glucose 93 mg/dL (65-110); Lipase 89 U/L (23-300); Sodium 140 mmol/L (137-145)
[2024-06-19 02:27] LABS: Partial Thromboplastin Time 28.3 Seconds (22.3-36.8)
[2024-06-19 02:34] LABS: Troponin I < 0.012 ng/mL (0.000-0.034)
--- OUTSIDE RECORDS SUMMARY | 2024-06-19 02:43 | XMS_ITS | Clinical Summary ---
Author Organization [facility] Address [address] [place] [address] Care Team Providers Care Dental Amalgam Processor Name Role Phone Kristy Briceno NP Primary Care Provider [phone] Allergies No known active allergies Medications No known medications Active Problems No known active problems Encounters Date Type Department Care Team Description 06/17/2024 Orders Only [address] [address] Kristy Briceno NP 06/16/2024 4:15 PM CITRIX SYSTEMS ADMINISTRATOR - 06/16/2024 11:59 PM CITRIX SYSTEMS ADMINISTRATOR Hospital Encounter [facility] [address] [place] [address] Kristy Briceno NP Arrived Discharge Disposition: Home or Self Care (Routine Discharge) 06/16/2024 4:05 PM CITRIX SYSTEMS ADMINISTRATOR - 06/16/2024 4:14 PM CITRIX SYSTEMS ADMINISTRATOR Hospital Encounter [facility] [address] [place] [address] Kristy Briceno NP Arrived Discharge Disposition: Home or Self Care (Routine Discharge) 06/16/2024 3:00 PM CITRIX SYSTEMS ADMINISTRATOR Office Visit [address] [address] Kristy Briceno NP Menstrual Problem (Pt reports [...] Sex Assigned at Female 06/16/2024 7:26 AM CITRIX SYSTEMS ADMINISTRATOR Legal Sex Female 3:28 PM CDT Gender Identity Female 06/16/2024 7:26 AM CITRIX SYSTEMS ADMINISTRATOR Sexual Orientation Straight 06/16/2024 7: 26 AM CITRIX SYSTEMS ADMINISTRATOR Last Filed Vital Signs Vital Sign Reading Time Taken Comments Blood Pressure 122/70 06/16/2024 3:12 PM CITRIX SYSTEMS ADMINISTRATOR Pulse 69 06/16/2024 3:12 PM CITRIX SYSTEMS ADMINISTRATOR Temperature 36.7 C (98 F) 06/16/2024 3:12 PM CITRIX SYSTEMS ADMINISTRATOR Respiratory Rate 16 06/16/2024 3:12 PM CITRIX SYSTEMS ADMINISTRATOR Oxygen Saturation 97% 06/16/2024 3:12 PM CITRIX SYSTEMS ADMINISTRATOR Inhaled Oxygen Concentration - - Weight 58.5 kg (129 lb) 06/16/2024 3:12 PM CITRIX SYSTEMS ADMINISTRATOR Height 162.6 cm (5' 4 ) 02/10/2023 3:01 PM CDT Body Mass Index 22.14 02/10/2023 3:01 PM CDT Plan of Treatment Upcoming Encounters Date Type Department Care Team (Late st Contact Info) Description 06/27/2024 3:00 PM CITRIX SYSTEMS ADMINISTRATOR Appointment [facility] [address] [place], [place] [id number] Kristy Briceno NP [address] [place] [address] Health Maintenance Due Date Last Done Comments [...] Annual Physical 02/11/2024 02/10/2023, 07/18/2021 PHQ-2 (Physician [place]) 04/27/2024 02/10/2023 Hepatitis C Completed 02/16/2023, 07/19/2021 [...] Comments ECG 12-LEAD STAT 06/16/2024 4:24 PM CITRIX SYSTEMS ADMINISTRATOR Chest pain, unspecified type HCG QUANT (SERUM)-CHORIONIC GONADOTROPIN STAT 06/16/2024 4:08 PM CITRIX SYSTEMS ADMINISTRATOR Late menses TSH W/REFLEX STAT 06/16/2024 4:08 PM CITRIX SYSTEMS ADMINISTRATOR Screening for thyroid disorder COMPREHENSIVE METABOLIC PANEL STAT 06/16/2024 4:08 PM CITRIX SYSTEMS ADMINISTRATOR Chest pain, unspecified type Screening for endocrine, metabolic and immunity disorder CBC W/DIFF AUTOMATED STAT 06/16/2024 4:08 PM CITRIX SYSTEMS ADMINISTRATOR Chest pain, unspecified type Screening for endocrine, metabolic and immunity disorder HEPATITIS C ANTIBODY W/RFX TO HCV RNA Routine 02/16/2023 1:56 PM CDT Need for hepatitis C screening test from Last 3 Months or Most Recently Relevant to Health Maintenance Results * ECG 12 lead (Hosp Performed) (06/16/2024 4:24 PM CITRIX SYSTEMS ADMINISTRATOR) 06/16/2024 4:24 PM CITRIX SYSTEMS ADMINISTRATOR Narrative [facility] ([facility]) RAD - 06/18/2024 12:42 PM CITRIX SYSTEMS ADMINISTRATOR [facility] Test Date: 2024-06-16 Pat Name: MISAEL PEDRAZA Department: 85 Room: Gender: Female Patient Service Associate: : 1995 Requested By: KRISTY BRICENO Order Number: [id number] Reading : Moreno Chavez Measurements Intervals [place] Rate: 59 P: 70 KS: 176 QRS: 92 QRSD: 125 T: 24 QT: 406 QTc: 405 Interpretive Statements SINUS BRADYCARDIA POSSIBLE LEFT ATRIAL ENLARGEMENT [-0.1mV P-WAVE IN V1/V2] BORDERLINE RIGHT AXIS DEVIATION [QRS AXIS > 90] POSSIBLE RIGHT VENTRICULAR CONDUCTION DELAY [RSR (QR) IN V1/V2] MODERATE ST DEPRESSION [0.05+ mV ST DEPRESSION] No previous ECG available for comparison IX SYSTEMS ADMINISTRATOR Procedure Note Moreno Chavez MD - 06/18/2024 [facility] Test Date: 2024-06-16 Pat Name: MISAEL PEDRAZA Department: 85 Room: Gender: Female Patient Service Associate: : 1995 Requested By: KRISTY BRICENO Order Number: [id number] Reading : Moreno Chavez Measurements Intervals [place] Rate: 59 P: 70 KS: 176 QRS: 92 QRSD: 125 T: 24 QT: 406 QTc: 405 Interpretive Statements SINUS BRADYCARDIA POSSIBLE LEFT ATRIAL ENLARGEMENT [-0.1mV P-WAVE IN V1/V2] BORDERLINE RIGHT AXIS DEVIATION [QRS AXIS > 90] POSSIBLE RIGHT VENTRICULAR CONDUCTION DELAY [RSR (QR) IN V1/V2] MODERATE ST DEPRESSION [0.05+ mV ST DEPRESSION] No previous ECG available for comparison IX SYSTEMS ADMINISTRATOR Kristy Briceno OUTPATIENT CLERK ECG ORDERABLES Final Res ult Performing Organization Address [facility]/ZIP Co de Phone Number [facility] ([facility]) RAD * TSH W/REFLEX (06/16/2024 4:08 PM CITRIX SYSTEMS ADMINISTRATOR) TSH 1.256 0.358 - 3.74 uIU/ML 06/16/2024 4:46 PM CITRIX SYSTEMS ADMINISTRATOR [facility] Comment: HIGH DOSES OF BIOTIN MAY INTERFERE WITH THIS TEST RESULT. CORRELATION TO CLINICAL HISTORY AND PRESENTATION RECOMMENDED. FREE T4 NOT INDICATED 06/16/2024 4:08 PM CITRIX SYSTEMS ADMINISTRATOR Kristy Briceno OUTPATIENT CLERK LABORATORY Final Res ult Performing Organization Address [facility]/ZIP Co de Phone Number [facility] [address] [place] [address], [place] [phone] * (ABNORMAL) COMPREHENSIVE METABOLIC PANEL (06/16/2024 4:08 PM CITRIX SYSTEMS ADMINISTRATOR) GLUCOSE 108(H) 70 - 99 MG/DL 06/16/2024 4:46 PM [facility] BUN 17 7 - 18 MG/DL 06/16/2024 4:46 PM [facility] CREATININE S/P/B 0.76 0.55 - 1.02 MG/DL 06/16/2024 4:46 PM [facility] SODIUM S/P/B 141 136 - 145 MMOL/L 06/16/2024 4:46 PM [facility] POTASSIUM S/P/B 4.1 3.5 - 5.1 MMOL/L 06/16/2024 4:46 PM [facility] CHLORIDE S/P/B 104 100 - 108 MMOL/L 06/16/2024 4:46 PM [facility] CO2 29.1 21 - 32 MMOL/L 06/16/2024 4:46 PM [facility] CALCIUM S/P/B 9.3 8.5 - 10.1 MG/DL 06/16/2024 4:46 PM [facility] BILIRUBIN TOTAL S/P/B 0.5 0.2 - 1.2 MG/DL 06/16/2024 4:46 PM [facility] TOTAL PROTEIN S/P/B 7.5 6.4 - 8.2 G/DL 06/16/2024 4:46 PM [facility] ALBUMIN S/P/B 3.9 3.4 - 5.0 G/DL 06/16/2024 4:46 PM [facility] AST 15 15 - 37 U/L 06/16/2024 4:46 PM [facility] ALT 23 14 - 55 U/L 06/16/2024 4:46 PM [facility] ALKALINE PHOSPHATASE S/P/B 40(L) 50 - 136 U/L 06/16/2024 4:46 PM [facility] ANION GAP 7.9 5 - 15 MMOL/L 06/16/2024 4:46 PM [facility] BUN CREATININE RATIO 22.4 6 - 26 06/16/2024 4:46 PM [facility] A/G RATIO 1.1 1.0 - 2.0 RATIO 06/16/2024 4:46 PM [facility] GFR ESTIMATE >90 >90 ML/MIN/1.7 3 M2 06/16/2024 4:46 PM [facility] Comment: NOTE: eGFR is not calculated for patients <18 years of age. This is an estimated GFR calculation using the new CKD EPI creatinine equation without race and so does not require a correction factor for race. This estimated GFR should not be used for calculating drug doses. 06/16/2024 4:08 PM CITRIX SYSTEMS ADMINISTRATOR Kristy Briceno OUTPATIENT CLERK LABORATORY Final Res ult Performing Organization Address [facility] de Phone Number [facility] [address] [place] [address], [place] [phone] * HCG QUANT (SERUM)-CHORIONIC GONADOTROPIN (06/16/2024 4:08 PM CITRIX SYSTEMS ADMINISTRATOR) HCG QUANTITATIVE <1 0 - 6 MIU/ML 06/16/2024 4:46 PM CITRIX SYSTEMS ADMINISTRATOR [facility] Comment: WEEKS OF REFERENCE RANGES NON- FEMALE 0-6 0.2 - 1 5 - 50 1 - 2 50 - 500 2 - 3 100 - 5000 3 - 4 500 - 10,000 4 - 5 1000 - 50,000 5 - 6 10,000 - 100,000 6 - 8 15,000 - 200,000 2 - 3 MONTHS 10,000 - 100,000 06/16/2024 4:08 PM CITRIX SYSTEMS ADMINISTRATOR Kristy Briceno NP LABORATORY Final Res ult Performing Organization Address [facility] de Phone Number [facility] [address] [place] [address], [place] [phone] * (ABNORMAL) CBC W/DIFF AUTOMATED (06/16/2024 4:08 PM CITRIX SYSTEMS ADMINISTRATOR) WBC 5.37 4.4 - 11.0 x10'3/uL 06/16/2024 4:19 PM CITRIX SYSTEMS ADMINISTRATOR [facility] RBC 4.45(L) 4.50 - 5.10 x10'6/uL 06/16/2024 4:19 PM CITRIX SYSTEMS ADMINISTRATOR [facility] HGB 12.0(L) 12.3 - 15.3 G/DL 06/16/2024 4:19 PM [facility] HCT 37.9 35.9 - 44.6 % 06/16/2024 4:19 PM [facility] MCV 85.2 80.0 - 96.0 FL 06/16/2024 4:19 PM [facility] MCH 27.0 25.3 - 30.9 PG 06/16/2024 4:19 PM [facility] MCHC 31.7 31.0 - 34.1 G/DL 06/16/2024 4:19 PM [facility] RDW 13.9 12.4 - 15.1 % 06/16/2024 4:19 PM [facility] PLT 275 151 - 353 x10'3/uL 06/16/2024 4:19 PM [facility] MPV 9.2(L) 9.6 - 12.0 FL 06/16/2024 4:19 PM [facility] RBC MORPHOLOGY NORMAL 06/16/2024 4:19 PM [facility] PLT MORPH. NORMAL 06/16/2024 4:19 PM [facility] WBC MORPHOLOGY NORMAL 06/16/2024 4:19 PM [facility] LYMPHOCYTES % 45.4(H) 15.8 - 45.0 % 06/16/2024 4:19 PM [facility] NEUTROPHILS % 40.0(L) 42.1 - 71.9 % 06/16/2024 4:19 PM [facility] MONOCYTES % 12.7(H) 5.7 - 12.5 % 06/16/2024 4:19 PM [facility] EOSINOPHILS 1.5 0.0 - 5.6 % 06/16/2024 4:19 PM CITRIX SYSTEMS ADMINISTRATOR [facility] BASOPHILS 0.2 0.0 - 1.3 % 06/16/2024 4:19 PM CITRIX SYSTEMS ADMINISTRATOR [facility] ABS. NEUTROPHILS 2.15 1.40 - 6.00 x10'3/uL 06/16/2024 4:19 PM CITRIX SYSTEMS ADMINISTRATOR [facility] IMMATURE GRANS % 0.2 0.0 - 0.5 % 06/16/2024 4:19 PM CITRIX SYSTEMS ADMINISTRATOR [facility] ABS. LYMPHOCYTES 2.44 0.80 - 4.70 x10'3/uL 06/16/2024 4:19 PM CITRIX SYSTEMS ADMINISTRATOR [facility] 06/16/2024 4:08 PM CITRIX SYSTEMS ADMINISTRATOR Kristy Briceno NP LABORATORY Final Res ult Performing Organization Address [facility] Co de Phone Number [facility] [address] [place] [address], * HEPATITIS C ANTIBODY W/RFX TO HCV RNA (02/16/2023 1:56 PM CDT) Pathologist [facility] [place] HEPATITIS C AB Non Reactive Non Reacti [facility] INTERPRETATION Comment [facility] Comment: Not infected with HCV unless early or acute infection is suspected (which may be delayed in an immunocompromised individual), or other evidence exists to indicate HCV infection. 02/16/2023 1:56 PM CDT 02/16/2023 Narrative [facility] - 02/17/2023 2:07 PM CDT Performed at: [address] [place] [id number] Feed Research Aide: Satinder Oliva PhD, Phone: [phone] Kristyemmanuel Briceno NP LABORATORY Final Res ult [facility] [address] [place] [address] [facility] 1 from Last 3 Months or Most Recently Relevant to Health Maintenance Insurance [employer] Care Teams Dental Amalgam Processor Relationship Specialty Start Date End Date Kristy Briceno NP [address] [place] [address] PCP - General NURSE PRACTITIONER 07/11/21
--- OUTSIDE RECORDS SUMMARY | 2024-06-19 02:43 | XMS_ITS | Patient Health Record ---
Author Organization [facility], [facility] Address [address] [place] [address] Care Team Providers Care Clerk Supervisor Name Role Phone Romi Garcia Primary Care Provider [phone] Reason For Referral No Information Social History Tobacco Use: Social History Observation Description Date Details (start date - stop date) Never Smoker NA - NA Drugs Question Answer Notes Illicit Drug use? No Tobacco Use/Smoking Question Answer Notes Smoking Status: nonsmoker Alcohol Screen (Audit-C) Question Answer Notes Did you have a drink containing alcohol in the p ast year? No Points 0 Interpretation Negative Tobacco use other than smoking: Question Answer Notes Are you an other tobacco user? No Plan Of Treatment No Information Insurance Providers Payer Name Payer Address Payer Phone Subscriber Number Group Number Insured Name Patient Relationship to Insured Coverage Start Date Coverage End Date Albina [facility] [address] [place] [phone] [id number] Jaja Stack Self - patient is the insured Medical (General) History Medical History History ICD Code none Surgical History Surgery Date(Month/Year)
--- OUTSIDE RECORDS SUMMARY | 2024-06-19 02:43 | XMS_ITS | Clinical Summary ---
Author Organization [facility] Address [address] [place] [address] Phone Care Team Providers Care Material Assembler Name Role Phone Unavailable Primary Care Provider [...] patient's age to complete this topic Insurance [employer] [facility] [id number]
[2024-06-19 02:53] VITALS: O2SAT 100
[2024-06-19 02:55] VITALS: BP 108/77; PULSE 67; RESP 11; O2SAT 100
--- NOTE | 2024-06-19 03:27 | ED.CHESTPAIN ---
HPI - Chest Pain General Chief Complaint: Chest Pain Stated Complaint: chest pain Time Seen by Provider: 06/19/24 02:34 History of Present Illness HPI narrative: Patient is a 28-year-old female who presents to the emergency department this evening complaining of chest pain which started around 5:00 p.m. this evening. Patient states that she has been having this chest pain on and off for the past few months. She has an echo that is scheduled for June 20. Patient states that she was seen approximately 1 week ago for similar chest pain at [facility] and at that time her EKG showed some abnormalities. Patient states that she has never seen a senior telecommunications consultant regarding this chest pain. Denies any history of cardiovascular disease, states that she is otherwise healthy and does not take any medications, does not smoke any tobacco. Denies any recent illness, any nausea vomiting or diarrhea. No additional symptoms or concerns at this time. Related Data Home Medications ?Medication ?Instructions ?Recorded ?Confirmed ?Last Taken ?Type prenat.vits,yris,qly-[id number]-bvhkw 1 tablet PO DAILY 12/11/21 07/17/22 1 Day Ago History ~07/16/22 Allergies Allergy/AdvReac Type Severity Reaction Status Date / Time No Known Allergies Allergy Verified 06/19/24 01:34 Review of Systems Review of Systems: All systems are reviewed and are negative unless stated otherwise in the HPI. [facility] Past Medical History Medical History Vaginal delivery Healthy adult Family History Family History Mother Hypertension Diabetes mellitus Social History Social History Smoking status: Never smoker Alcohol intake: current Drinks per week: 0 Alcohol use details: rare Substance use: never Lack of Transportation: No Lack of Food: Never True Current Housing: I Have Housing Concerned About Future Housing: No Difficulty Paying Gas/Electric Bills: No Difficulty Paying for Meds: No Currently Unemployed: No Education: High School Diploma/GED Difficulty w/ Childcare or Family Care: No Living arrangements: with family Occupation/Education: occupation Gender identity (if verbalized by the patient): Female Sexual Orientation (if Verbalized by the Patient): Straight or Heterosexual Spiritual care concerns: No Exam Narrative: General: Alert, awake, afebrile, in no acute distress, anxious. HEENT: PERRL, no rhinorrhea, no post nasal drip, oropharynx clear. Neck: Trachea midline, no JVD, no lymphadenopathy. Cardiovascular: Regular rate and rhythm, no murmurs, rubs or gallops, no peripheral edema. Respiratory: Clear to auscultation bilaterally, no tachypnea, no wheezing, no rhonchi, no rubs, no respiratory distress. Abdomen: Soft, nontender, nondistended, no rebound, no guarding, no peritoneal signs. Musculoskeletal: No joint swelling or deformity, normal muscle tone. Skin: No rashes or petechia, no signs of infection. Psychiatric: Alert and oriented, normal behavior and judgment for situation. Neurological: Alert and oriented to person, place, and time. Follows all commands. No focal deficits, speech is clear and fluent. Course Vital Signs Vital signs: Vital Signs Temperature 97.7 F 06/19/24 01:35 Pulse Rate 61 06/19/24 01:35 Respiratory Rate 17 06/19/24 01:35 Blood Pressure 108/69 06/19/24 01:35 Pulse Oximetry 100 06/19/24 01:35 Oxygen Delivery Room Air 06/19/24 01:35 Temperature 97.7 F 06/19/24 01:35 Pulse Rate 67 06/19/24 02:55 Respiratory Rate 11 L 06/19/24 02:55 Blood Pressure 108/77 06/19/24 02:55 Pulse Oximetry 100 06/19/24 02:55 Oxygen Delivery Room Air 06/19/24 02:53 MDM - Chest Pain MDM Narrative Medical decision making narrative: The patient was evaluated by myself in the emergency department. History is obtained from patient who is an independent historian and physical exam was performed. External medical records were reviewed at this time. IV was established and pertinent tests were ordered. EKG was obtained which revealed sinus rhythm at a rate of 66 beats per minute with an incomplete right bundle branch block. No ST changes, T wave inversions or evidence of acute ischemia. EKG was independently interpreted by me and is currently pending official cardiology read. EKG was compared to EKG from January of 2021 revealing similar findings. Laboratory results obtained revealing no acute process. Troponin was obtained and noted to be negative. Imaging studies obtained included CXR which was independently interpreted by me revealing no acute cardiopulmonary process, which is pending final radiology interpretation. Differential diagnosis considerations include acute stress reaction, anxiety, infectious process such as pneumonia, acute viral syndrome, GERD, acute coronary syndrome although unlikely given patient's low heart score of 0. Patient is PERC negative. Comorbidities impacting this visit include none. I have evaluated and discussed social determinants of health with the patient that could potentially impact subsequent diagnosis and treatment plans. On repeat assessment of the patient, reevaluation revealed that the patient is doing well and is in no acute distress. Patient symptoms have improved since she arrived to our emergency department. Repeat vital signs were all reviewed and noted to be stable. Differential diagnosis and treatment plan were discussed with the patient at bedside. Patient agrees with discussion and after shared medical decision making agrees with discharge. All questions were answered to the patient's satisfaction. Patient will follow up with cardiology in 3-5 days. Patient was provided with strict return precautions and instructed to return to the emergency department if any new or worsening symptoms develop. The patient was discharged in stable condition. Lab Data 06/19/24 01:49 06/19/24 01:49 Labs: Lab Results 06/19/24 Range/Units 01:49 WBC 6.0 (4.5-10.0) K/mm3 RBC 4.20 (4.2-5.4) M/mm3 Hgb 11.3 L (12.0-15.0) g/dL Hct 35.7 L (37.0-47.0) % MCV 85.0 (80-100) fl MCH 26.9 (26-34) pg MCHC 31.7 L (32-36) g/dl RDW 13.8 (11.5-14.5) % Plt Count 243 (150-375) k/mm3 MPV 9.6 (7.4-10.4) fl Immature Gran % (Auto) 0.2 (0-0.5) % Neut % (Auto) 31.8 L (45.5-73.1) % Lymph % (Auto) 53.3 H (18.3-44.2) % [place] % (Auto) 12.3 H (2.6-8.5) % Eos % (Auto) 2.2 (0-4.4) % Baso % (Auto) 0.2 (0.2-1.2) % Lymph # (Auto) 3.20 (0.9-3.2) K/mm3 [place] # (Auto) 0.7 H (0.1-0.6) K/mm3 Eos # (Auto) 0.1 (0-0.3) K/mm3 Baso # (Auto) 0.0 (0.0-0.1) K/mm3 Abs Immat Gran (auto) 0.01 (0.00-0.031) K/mm3 Absolute Neuts (auto) 1.9 (1.3-6.7) K/mm3 Absolute Nucleated RBC 0.000 (0.0-0.012) K/mm3 Nucleated RBC % 0.0 (0.0-0.2) % PT 13.0 (11.1-14.7) Seconds INR 1.0 APTT 28.3 (22.3-36.8) Seconds Sodium 140 (137-145) mmol/L Potassium 4.0 (3.4-5.0) mmol/L Chloride 105 (98-107) mmol/L Carbon Dioxide 25 (22-30) mmol/L Anion Gap 10 (4-12) mmol/L BUN 16 (7-17) mg/dL Creatinine 0.73 (0.7-1.0) mg/dL Estim Creat Clear Calc 84 ml/min Estimated GFR > 60 (59 - ) Glucose 93 (65-110) mg/dL Calcium 9.0 (8.4-10.2) mg/dL Total Bilirubin 0.6 (0.2-1.3) mg/dL AST 22 (14-36) U/L ALT 17 (6-35) U/L Alkaline Phosphatase 38 (38-126) U/L Troponin I < 0.012 (0.000-0.034) ng/mL Total Protein 7.0 (6.3-8.2) g/dL Albumin 4.2 (3.5-5.1) g/dL Lipase 89 (23-300) U/L Discharge Plan Discharge Clinical Impression: Chest pain Patient Disposition: Home, Self-Care Condition: Improved Instructions: Antibiotic Form, Chest Pain (ED) Additional Instructions: Please follow-up with the senior telecommunications consultant you were provided with today within the next 3-5 days regarding your chest. Return to the emergency department if any new or worsening symptoms develop. Patient Language: Slovenian Prescriptions: No Action prenat.vits,yris,omv-suay-bgeql Tablet 1 tablet PO DAILY ferrous sulfate 325 mg (65 mg iron) tablet 325 mg PO BID Qty: 60 2RF Follow-up/Referrals: Ronnie Alfaro MD [Physician] - 3 Days Janak,KIA Pang [Primary Care Provider] - Time of Disposition: 03:27
[2024-06-19 03:43] VITALS: BP 110/78; PULSE 69; RESP 18; O2SAT 100
== END 2024-06-19 03:44 | disposition home or self-care (01) ==
PROVIDERS: Emergency Provider Emergency Medicine; PCP Nurse Practitioner
DX: R07.9 Chest pain, unspecified (principal); I45.10 Unspecified right bundle-branch block
CPT/HCPCS: 36415; 71046; 80053; 83690; 84484; 85025; 85610; 85730; 93005; 99284

== ENCOUNTER 2024-07-05 15:17 | Outpatient (CLI) | payer OTHER, SELFPAY ==
--- NOTE | ~2024-07-05 | US_ITS ---
EXAMINATION: US pelvic complete w TV DATE: 07/05/2024 15:44 INDICATION: Pelvic and perineal pain, left. TECHNIQUE: Multiple transabdominal and transvaginal sonographic images of the pelvis were obtained. COMPARISON: None. FINDINGS: TRANSABDOMINAL ULTRASOUND: The uterus measures 8.7 x 4.7 x 4.1 cm. There is no free fluid in the pelvis. TRANSVAGINAL ULTRASOUND: The endometrial complex measures 13 mm in thickness. There is an 11 mm subserosal fibroid. The right ovary measures 3.6 x 3.6 x 2.1 cm. The left ovary measures 2.6 x 2.1 x 1.3 cm. There is normal vascul ar flow in the ovaries. IMPRESSION: 1. Uterine fibroid. Reviewed, dictated and finalized at location B. IMPRESSION: 1. Uterine fibroid.
== END 2024-07-05 15:18 | disposition home or self-care (01) ==
LOC: GOSHIMG 15:17
PROVIDERS: PCP Nurse Practitioner Obstetrics & Gynecology; Visit Provider Nurse Practitioner Obstetrics & Gynecology
DX: R10.2 Pelvic and perineal pain (principal); D25.9 Leiomyoma of uterus, unspecified
CPT/HCPCS: 76830; 76856

== ENCOUNTER 2025-04-24 14:52 | Outpatient (CLI) | payer OTHER, SELFPAY ==
--- NOTE | ~2025-04-24 | US_ITS ---
EXAMINATION: US pelvic complete w TV INDICATION: Pelvic pain Comparison:No prior studies for comparison. TECHNIQUE: Multiple transabdominal and endovaginal sonographic images of the pelvis performed. FINDINGS: The uterus measures 8.4 x 4 x 5.4 cm. There is a fibroid located at the posterior fundus of the uterus measuring 1.4 cm. The endometrial complex measures 7 mm. The right ovary measures 4.2 x 2.2 x 2.3 cm and the left ovary measures 3.6 x 1.2 x 4 cm. There are small follicles in each ovary. Normal doppler signal in both ovaries. There is no free fluid in the pelvis. There are no abnormal masses seen on either side. IMPRESSION: 1. Small uterine fibroid measuring 1.4 cm at the fundus posteriorly. Reviewed, dictated and finalized at location O. ORK MANAGEMENT SPECIALIST
== END 2025-04-24 14:53 | disposition home or self-care (01) ==
LOC: MICIMG 14:52
PROVIDERS: PCP Nurse Practitioner Obstetrics & Gynecology; Visit Provider Nurse Practitioner Obstetrics & Gynecology
DX: R10.20 Pelvic and perineal pain unspecified side (principal); D25.9 Leiomyoma of uterus, unspecified
CPT/HCPCS: 76830; 76856